=== PATIENT | male | born 1975 | race Caucasian/White ===

== ENCOUNTER 2018-12-21 22:06 | Emergency (ER) | payer BC ==
[2018-12-21 22:12] VITALS: BP 145/86; PULSE 71; TEMP 99; BMI 27.3
--- NOTE | 2018-12-21 22:45 | PDOC ---
History of Present Illness - General Chief Complaint: Headache Stated Complaint: HEADACHE/HBP Time Seen by Provider: 12/21/18 22:17 History Source: Patient - History of Present Illness Initial Comments: 12/21/18 22:40 43 yo M PMH Crohn's disease, asthma, PUD, one episode of pancreatitis 2/2 alcohol, 20 years smoking history (quit 5 months ago), presenting with LUO. Reports that it has been present for the last 5 days, occipital, improves with acetaminophen but then comes right back, associated with intermittent blurry vision. Does state that on Monday he felt a sharp chest pain, but it resolved in minutes and has not come back. Denies current CP, SOB, N/V, fevers/chills, constipation/diarrhea. Repeatedly states how stressed he has been recently. His mother has Parkinson's and his father is currently hospitalized, he has two young children at home. Past History - Past Medical History Allergies/Adverse Reactions: Allergies Allergy/AdvReac Type Severity Reaction Status Date / Time No Known Allergies Allergy Verified 12/21/18 22:11 Home Medications: Ambulatory Orders NK [No Known Home Medication] 12/21/18 COPD: No - Psycho Social/Smoking Cessation Hx Smoking History: Former smoker Have you smoked in the past 12 months: Yes Information on smoking cessation initiated: Yes Hx Alcohol Use: No Drug/Substance Use Hx: No Review of Systems - Review of Systems Able to Perform ROS?: Yes Constitutional: No: Chills, Diaphoresis, Fever, Weakness HEENTM: Yes: Blurred Vision (intermittent). No: Hearing Loss, Difficulty Swallowing Respiratory: No: Cough, Orthopnea, Shortness of Breath Cardiac (ROS): Yes: Chest Pain (Monday, not since) ABD/GI: No: Constipated, Diarrhea, Nausea, Vomiting : No: Burning, Dysuria, Discharge, Frequency, Flank Pain Musculoskeletal: No: Back Pain, Muscle Weakness Neurological: Yes: Headache (occipital). No: Numbness, Tingling, Tremors, Weakness *Physical Exam - Vital Signs Last Vital Signs Temp Pulse Resp BP Pulse Ox 99 F 71 19 145/86 99 12/21/18 22:08 12/21/18 22:08 12/21/18 22:08 12/21/18 22:08 12/21/18 22:08 - Physical Exam Comments: 12/21/18 22:53 Gen: well-developed, well-nourished, NAD Neuro: AAOX4, CN II-XII intact, FTN intact, EOMI, PERRLA, 5/5 strength, SILT HEENT: atraumatic, normocephalic Neck: trachea midline, supple CV: regular rate, regular rhythm, no murmurs, rubs, or gallops Pulm: CTA b/l, no wheezing Abd: soft, non-distended, non-tender MSK: full ROM, intact pulses Extr: no edema, no deformities Skin: warm, dry ED Treatment Course - LABORATORY CBC & Chemistry Diagram: 12/21/18 23:25 12/21/18 23:25 Medical Decision Making - Medical Decision Making 12/21/18 22:53 Headache with no focal deficits in s/o increased stress. Has reportedly taken 4000mg acetaminophen a day. - CBC, CMP - Reglan PO - reassess 12/21/18 23:52 CT scan with no acute pathology. 12/22/18 00:15 Cr 1.6, will encourage more fluid intake. Will dc for further outpatient workup. Discharge - Discharge Information Problems reviewed: Yes Clinical Impression/Diagnosis: Headache - Follow up/Referral - Patient Discharge Instructions Patient Printed Discharge Instructions: DI for Headache Additional Instructions: You were seen with headache. Your labs were unconcerning, and your CT scan did not show any concerning findings. Follow up with your primary care doctor within one week. Return to the ED if you develop worsening symptoms. - Post Discharge Activity
[2018-12-21] MEDS ORDERED: METOCLOPRAMIDE HCL 10 MG TABLET (FP) PO ONE ×2 (22:46→22:48)
--- NOTE | 2018-12-21 23:09 | PDOC ---
Documentation entered by Valentin Ramirez SCRIBE, acting as scribe for Vinh Yarbrough MD. Vinh Yarbrough MD: This documentation has been prepared by the James otto Daniel, SCRIBE, under my direction and personally reviewed by me in its entirety. I confirm that the documentation accurately reflects all work, treatment, procedures, and medical decision making performed by me. Attending Attestation - Resident Resident Name: HortonJeevangareth - ED Attending Attestation I have performed the following: I have examined & evaluated the patient, The case was reviewed & discussed with the resident, I agree w/resident's findings & plan - HPI HPI: 12/21/18 22:40 The patient is a 43 year old male with a past medical history of asthma, pancreatitis, and peptic ulcer disease here today for evaluation of headache. The patient reports that he has had a constant, pressure like, frontal headache that radiates to the back of his head and down his neck for the past 5 days and saw both his PCP and director drug. His director drug told him that his BP was not high enough to cause a headache but told him to come in for a CT if he is concerned. He also notes one episode of a weird chest sensation that resolved after few minutes and never happened again. He states tylenol provides some relief and also notes intermittent blurry vision. Patient denies lightheadedness. Denies fever, chills. Denies shortness of breath. Denies nausea, vomiting, diarrhea, abdominal pain. Allergies: NKA Surgical history: none Social history: 20 years smoking history, quit 5 months ago. - Physicial Exam PE: 12/21/18 23:05 GENERAL: The patient is awake, alert, and fully oriented, in no acute distress. HEAD: Normal with no signs of trauma. EYES: Pupils equal, round and reactive to light, extraocular movements intact, sclera anicteric, conjunctiva clear with no pallor. ENT: Ears normal, nares patent, oropharynx clear without exudates. Moist mucous membranes. NECK: Normal range of motion, supple without lymphadenopathy, JVD, or masses. LUNGS: Breath sounds equal, clear to auscultation bilaterally. No wheeze/ crackles. HEART: Regular rate and rhythm, normal S1 and S2 without murmur or rub. ABDOMEN: Soft/nontender/nondistended. BS wnl. No guarding or rebound. No palpable masses. No hepatosplenomegaly. EXTREMITIES: Normal range of motion, no edema. No clubbing or cyanosis. No cords, erythema, or tenderness. NEURO: Mental status: The patient is alert and oriented x3. Cranial nerves: Cranial nerves II through XII are intact Motor: The upper extremities are 5 over 5 in all muscle groups. The lower extremities are 5 over 5 in all muscle groups. No pronator drift. Sensation: Sensation is intact to light touch throughout. Cerebellar: Uwohtb-qevivi-dqtq is normal in both upper extremities. Heel-knee- keys is normal in both lower extremities. Reflexes: 2+ and symmetric in the upper and lower extremities. Gait: Normal. Heel and toe walking are normal. Tandem gait is normal. PSYCH: Normal mood, normal affect. SKIN: +discoloration of fingernails. Warm, Dry, normal turgor, no rashes or lesions noted. - Medical Decision Making 12/21/18 23:07 A portion of this note was documented by scribe services under my direction. I have reviewed the details of the note, within reason, and agree with the documentation with the following case summary and management plan written by me. 43-year-old male with no significant past medical history other than one episode of pancreatitis, smoking history quit 5 months ago, presents now with several days of persistent headache only temporarily relieved with Tylenol, associated with some intermittent blurry vision but no loss of vision/diplopia/ vision change/speech change/nausea/vomiting/no focal deficit. No fevers or chills, had a single episode of atypical chest discomfort at rest, otherwise at baseline has no exercise limitations and actively attends the gym. Vitals as noted, blood pressure 140 systolic Patient is seated comfortably in stretcher, texting on his cell phone and having a conversation Exam as noted with normal neurological and cardiopulmonary exams 43-year-old male with mild headache for 3 to 4 days, slightly elevated blood pressure, otherwise neurologically intact without red flags on history or physical exam. No cardiopulmonary complaints here, is well-appearing. Labs sent Patient presents for CT of his head referred by his PCP from [facility], will check CT head without contrast given worsening of his baseline headache pattern, neurological exam is normal Trial of Reglan orally If above is within normal limits can discharge to outpatient follow-up Heart Score/ECG Review - History History: Slightly suspicious - Electrocardiogram EKG: Normal - Age Age: </= 45 - Risk Factors Based on the list above the patient has:: 1-2 risk factors - Troponin Troponin: </= normal limit - Score Heart Score - Total: 1 #1 ECG reviewed & interpreted by me at: 22:05 General ECG Interpretation: Sinus Rhythm, Normal Rate (62), Normal Intervals ( qtc 424), No acute ischemic changes
[2018-12-21 23:39] LABS: BASO % 0.7 % (0-2.0); EOS % 2.8 % (0-4.5); HEMATOCRIT 42.5 % (35.4-49); HEMOGLOBIN 14.3 GM/dL (11.7-16.9); LYMPH % 42.9 % (8-40); MCH 28.9 pg (25.7-33.7); MCHC 33.5 g/dl (32.0-35.9); MEAN CELL VOLUME 86.2 fl (80-96); MEAN PLT VOLUME 8.9 fl (7.5-11.1); MONO % 8.3 % (3.8-10.2); NEUT % 45.3 % (42.8-82.8); PLATELET COUNT 176 K/MM3 (134-434); RBC 4.94 M/mm3 (4.00-5.60); RDW 13.8 % (11.9-15.9); WHITE BLOOD COUNT 6.5 K/mm3 (4.0-10.0)
[2018-12-22 00:08] LABS: ALBUMIN 3.9 g/dl (3.4-5.0); BILIRUBIN,TOTAL 0.3 mg/dL (0.2-1); BLOOD UREA NITROGEN 21.3 mg/dL (7-18); CALCIUM 8.9 mg/dL (8.5-10.1); CREATININE 1.6 mg/dL (0.55-1.3); MAGNESIUM 2.2 mg/dL (1.8-2.4); POTASSIUM 4.2 mmol/L (3.5-5.1); TOT PROT 6.8 g/dl (6.4-8.2)
--- NOTE | 2018-12-24 10:56 | EKG ---
Test Reason : Blood Pressure : / mmHG Vent. Rate : 062 BPM Atrial Rate : 062 BPM P-R Int : 162 ms QRS Dur : 082 ms QT Int : 418 ms P-R-T Axes : 073 064 037 degrees QTc Int : 424 ms NORMAL SINUS RHYTHM NORMAL ECG NO PREVIOUS ECGS AVAILABLE Confirmed by DENA VIRAMONTES MD ([id number]) on 12/24/2018 10:56:00 AM Referred By: Confirmed By:DENA VIRAMONTES MD
== END 2018-12-22 00:21 | disposition home or self-care (01) ==
LOC: JER 22:06
DX: R51 Headache (principal); Z87.19 Personal history of other diseases of the digestive system; Z87.11 Personal history of peptic ulcer disease; Z87.891 Personal history of nicotine dependence; Z87.09 Personal history of other diseases of the respiratory system
CPT/HCPCS: 36415; 70450-TC; 80053; 83735; 85025; 93005; 93010; 99282-25